=== PATIENT | male | born 1955 | race Caucasian/White ===

== ENCOUNTER 2017-01-07 21:49 | Inpatient (IN) | payer BC ==
[~2017-01-07] VITALS: Ht 182.9 cm; Wt 109.3 kg
[2017-01-07 22:11] LABS: ADD SCAN DIFF NO
[2017-01-07 22:14] LABS: ABNORMAL IP MESSAGE 1; HEMATOCRIT 23.4 % (42.0-52.0); HEMOGLOBIN 7.1 g/dl (14.0-18.0); MEAN CORPUSCULAR HEMOGLOBIN 29.6 pg (29.0-33.0); MEAN CORPUSCULAR HGB CONC 30.3 g/dl (32.0-37.0); MEAN CORPUSCULAR VOLUME 97.5 fl (82.0-101.0); MEAN PLATELET VOLUME 11.1 fl (7.4-10.4); PLATELET COUNT 462 10^3/UL (140-415); RED CELL DISTRIBUTION WIDTH 15.3 % (11.5-14.5); WHITE BLOOD COUNT 25.2 10^3/ul (4.8-10.8)
[2017-01-07] MEDS ORDERED: METF500T4 PO (22:20)
[2017-01-07] MEDS ORDERED: DULO60CA6 PO (22:20)
[2017-01-07] MEDS ORDERED: ESCI5TAB PO (22:25)
[2017-01-07 22:26] LABS: INR 1.29; PROTIME 16.2 Sec (12.2-14.2); PT RATIO 1.3
[2017-01-07 22:27] LABS: PARTIAL THROMBOPLASTIN TIME 33.1 Sec (25.0-35.0)
[2017-01-07] MEDS ORDERED: TAMS-14 PO (22:28)
[2017-01-07] MEDS ORDERED: IBUP400T22 PO (22:31)
[2017-01-07] MEDS ORDERED: LANT3I SC (22:34)
[2017-01-07 22:47] LABS: EOSINOPHILS # 1.5 10^3/ul (0.0-0.5); LYMPHOCYTES # 3.5 10^3/ul (0.8-2.9); MONOCYTE # 0.8 10^3/ul (0.3-0.9); NEUTROPHIL # 18.6 10^3/ul (1.6-7.5)
--- NOTE | 2017-01-07 23:06 | ERA ---
ER Documentation Chief Complaint Date/Time DATE: 01/07/17 TIME: 22:59 Chief Complaint HPI This is a 7-year-old male that had been transferred from his acute care facility , [facility] to vent dependent with leukocytosis, multiple pressure sores and a known history of MRSA. The patient is a DO NOT RESUSCITATE with comfort measures only. The patient was meant to be a direct admit and terminally extubated tomorrow however no beds were available in the hospital and therefore he presented through the emergency department. The admitting physician Dr. Valdez is aware. The patient is bedbound and aphasic and is unable to provide any further history. Antibiotics had been started at [facility] and rehab. ROS All systems reviewed and are negative except as per history of present illness. Medications Home Meds Reported Medications Insulin Glargine* (Lantus*) 100 Unit/Ml Soln, SC BID, #1 VIAL PATIENT DON'T REMEMBER BUT SHE SAID PATIENT IS ON LANTUS. 01/07/17 Ibuprofen* (Ibuprofen*) 400 Mg Tablet, 400 MG PO Q6H Y for PAIN, TAB 01/07/17 Tamsulosin Hcl* (Flomax*) 0.4 Mg Cap.er.24h, 0.4 MG PO QHS, CAP PATIENT CAN'T RECALL THE DOSAGE. 01/07/17 Escitalopram Oxalate* (Lexapro*) 5 Mg Tablet, PO DAILY, #30 TAB UNKNOWN DOSE PER PATIENT 01/07/17 Duloxetine Hcl* (Cymbalta*) 60 Mg Capsule.dr, 60 MG PO DAILY, CAP 01/07/17 Metformin Hcl* (Metformin Hcl*) 500 Mg Tablet, 500 MG PO WITH BREAKFAST DINNE, # 30 TAB 01/07/17 Allergies Allergies: Coded Allergies: No Known Allergy (Unverified , 01/07/17) PMhx/Soc History of Surgery: Yes Anesthesia Reaction: No Hx Neurological Disorder: Yes (STROKE) Hx Respiratory Disorders: Yes (TRACH TO VENT) Hx Cardiac Disorders: Yes (HTN) Hx Psychiatric Problems: No Hx Miscellaneous Medical Probl: No Hx Alcohol Use: No Hx Substance Use: No Hx Tobacco Use: No Smoking Status: Never smoker Physical Exam Vitals Vital Signs Date Time Temp Pulse Resp B/P Pulse Ox O2 Delivery O2 Flow Rate FiO2 01/07/17 22:00 98.2 105 24 129/76 97 Mechanical Ventilator Trach Collar 4/24/17 22:00 98.2 105 23 129/76 100 01/07/17 21:50 105 23 98 40 Physical Exam Constitutional:Well-developed. Debilitated male. HEENT:Normocephalic. Atraumatic. Corneal clouding of both pupils. Moist mucous membranes.No tonsillar exudates. Neck: No nuchal rigidity. No lymphadenopathy. No posterior cervical spine tenderness or step-offs. Tracheostomy site is clean dry and intact Respiratory: Not using accessory muscles of respiration.Lungs were clear to auscultation bilaterally. No rhonchi. No rales. No wheezing. Cardiovascular: Tachycardic with regular rhythm.No murmurs. No rubs were appreciated.S1, S2 normal. Distal pulses are palpable 2+ bilaterally. GI: Abdomen was soft. Nontender. Non Distended. No pulsatile abdominal masses or bruits. No rebound. No guarding. Bowel sounds were present and normal. Muscle skeletal: Muscle atrophy of the upper and lower extremities Skin: No petechia, no purpura. No lesions on the palms or the soles of the feet. No maculopapular rash. Sacral decubitus ulcers stage III NEURO: Patient is bedbound. Aphasic. Result Diagram: 01/07/17 2200 Results 24 hrs Laboratory Tests Test 01/07/17 22:00 White Blood Count 25.210^3/ul Red Blood Count 2.4010^6/ul Hemoglobin 7.1g/dl Hematocrit 23.4% Mean Corpuscular Volume 97.5fl Mean Corpuscular Hemoglobin 29.6pg Mean Corpuscular Hemoglobin Concent 30.3g/dl Red Cell Distribution Width 15.3% Platelet Count 81584^3/UL Mean Platelet Volume 11.1fl Neutrophils % 74.0% Band Neutrophils % 3.0% Lymphocytes % 14.0% Monocytes % 3.0% Eosinophils % 6.0% Neutrophils # 18.610^3/ul Lymphocytes # 3.510^3/ul Monocytes # 0.810^3/ul Eosinophils # 1.510^3/ul Prothrombin Time 16.2Sec Prothrombin Time Ratio 1.3 INR International Normalized Ratio 1.29 Activated Partial Thromboplast Time 33.1Sec Current Medications Medications (Trade) Dose Ordered Sig/Lexus Route PRN Reason Start Time Stop Time Status Last Admin Dose Admin Cefepime HCl 50 ml @ 100 mls/hr ONCE STAT IVPB 01/07/17 23:07 01/07/17 23:36 Vancomycin HCl 250 ml @ 125 mls/hr ONCE ONCE IVPB 01/07/17 23:30 01/08/17 01:29 Levofloxacin/ Dextrose (Levaquin 750 Mg/ D5W 150 ml (Pmx)) 150 ml @ 100 mls/hr ONCE ONCE IVPB 01/07/17 23:30 01/08/17 00:59 Procedures/MDM This patient presented to the emergency department for direct admission. Blood cultures have been obtained. The patient was started on broad-spectrum antibiotics for sepsis of an unclear etiology. The patient will be admitted to the telemetry service as again the patient is a DO NOT RESUSCITATE with comfort measures only. Dr. Valdez is the admitting physician and he is aware that the patient is in the emergency department. Patient's hemoglobin was 7.1 but a blood transfusion was not given as the patient again is a DNR with comfort measures only. Departure Diagnosis: Primary Impression: Encounter for laboratory test Additional Impressions: Anemia Qualified Code: D64.9 - Anemia, unspecified type Leukocytosis Qualified Code: D72.825 - Bandemia Condition: Serious GERTRUDEMARCI VALLESA Jan 07, 2017 23:06
[2017-01-07] MEDS ORDERED: CEFEPIME 2GM/50 ML (PMX) 50 ML IVPB STA (23:07)
[2017-01-07] MEDS ORDERED: VANCOMYCIN 1 GM (PMX) 250 ML IVPB ONE (23:30)
[2017-01-07] MEDS ORDERED: LEVOFLOXACIN 750MG/D5W (PMX) 150 ML IVPB ONE (23:30)
[2017-01-07 23:44] LABS: ALBUMIN 2.3 g/dl (3.3-4.9); ALBUMIN/GLOBULIN RATIO 0.69; CALCIUM 7.2 mg/dl (8.4-10.2); TOTAL PROTEIN 5.6 g/dl (6.1-8.1)
[2017-01-07 23:51] LABS: CREATININE 7.78 mg/dl (0.61-1.24)
[2017-01-07 23:55] LABS: POTASSIUM 7.2 mmol/L (3.5-5.1)
[2017-01-08] VITALS (14 sets, daily range): BP systolic 91–98; BP diastolic 48–57; PULSE 95–111; RESP 16–31; TEMP 98; Ht 182.9 cm; Wt 109.3 kg
[2017-01-08 00:05] LABS: ADD UMIC YES; URINE BILIRUBIN (Dip) NEGATIVE (NEGATIVE); URINE BLOOD (Dip) 3+ (NEGATIVE); URINE COLOR LT. YELLOW (YELLOW); URINE GLUCOSE (Dip) NEGATIVE (NEGATIVE); URINE KETONES (Dip) NEGATIVE (NEGATIVE); URINE LEUKOCYTE ESTERASE (Dip) 3+ (NEGATIVE); URINE NITRITE (Dip) NEGATIVE (NEGATIVE); URINE TOTAL PROTEIN (Dip) 2+ (NEGATIVE); URINE UROBILINOGEN (Dip) 0.2 E.U./dL (0.1-1.0)
[2017-01-08 00:30] LABS: BACTERIA,URINE MODERATE; URINE RBCS 25-50 /HPF (0)
[2017-01-08] MEDS ORDERED: morphine (DRIP) 100 MG/100 ML 100 ML IV SCH (01:30)
[2017-01-08] MEDS ORDERED: LORAZEPAM 2 MG INJ IV PRN (01:30)
--- NOTE | 2017-01-08 05:08 | HP ---
Date/Time of Note Date/Time of Note DATE: 01/08/17 TIME: 04:50 Assessment/Plan VTE Prophylaxis VTE Prophylaxis Intervention: other (no need for ppx as pt is comfort measure only) Lines/Catheters [facility] (from [facility]): PICC Line Central line still needed: Yes Urinary Cath still in place: Yes Reason Cath still needed: other (indicate) Assessment/Plan Assessment/Plan ASSESSMENT: patient is a 61 yo unfortunate male with severe stroke in November of this year who is trached to vent and is in a vegetative state who was transferred from rehab for hospice eval and terminal extubation PLAN - Morphine drip and Ativan titrate to comfort - palliative care and hospice eval - pt to be terminally extubated tomorrow HPI/ROS Admit Date/Time Admit Date/Time Jan 07, 2017 at 21:53 Hx of Present Illness Patient is a 61 yo male with hx of of Diabetes, stroke, trach to vent and who is in a vegetative state who was sent from Rehab for hospice eval and terminal extubation. History was taken from who was at bedside. She said he had stroke in november of this year that led to his current condition. She requested that pt only be comfortable at this time. She is aware of pt's potassium of 7.2 , WBC 25K, Cr > 7 as well as abnormal LFTs. She said they have 2 children. Oldest son is 32 yo and is currently in [facility]. youngest child requires special need due to his mental capacity. She is the only decision maker for her . Patient is completely in a vegetative state, but at times withdraws to noxious stimuli. . PMH/Family/Social Past Medical History Medical History: diabetes, other (CVA) Past Surgical History Past Surgical Hx: other (tracheostomy, gtube) Social History Alcohol Use: occasionally Smoking Status: Never smoker Drug Use: none Exam/Review of Systems Vital Signs Vitals Vital Signs Date Time Temp Pulse Resp B/P Pulse Ox O2 Delivery O2 Flow Rate FiO2 01/08/17 03:48 97.7 96 19 92/54 98 01/08/17 00:00 Mechanical Ventilator Trach Collar 01/07/17 23:31 40 Exam Constitutional: non-verbal, other (trached to vent. in a vegetative state) Eyes: other (pinpoint pupils with right eye very minimally reactive to light. Left eye unreactive) Respiratory: diminished breath sounds Cardiovascular: other (tachycardic) Gastrointestinal: other (gtube in place), soft Extremities: normal pulses Labs Result Diagram: 01/07/17219901/07/172199 Medications Medications Current Medications Lorazepam 1 mg 1 mg Q1H PRN IV ANXIETY Last administered on 01/08/17 01:25; Admin Dose 1 MG; Start 01/08/17 at 01:30 Morphine Sulfate/ Sodium Chloride (morphine) 100 ml @ 1 mls/hr TITRATE IV Last administered on 01/08/17 02:17; Admin Dose 1 MLS/HR; Start 01/08/17 at 01:30 MADISON HERRING MD Jan 08, 2017 05:00
--- NOTE | 2017-01-08 12:39 | PN ---
Date/Time of Note Date/Time of Note DATE: 01/08/17 TIME: 12:34 Assessment/Plan VTE Prophylaxis VTE Prophylaxis Intervention: other Lines/Catheters IV Catheter Type (from Nrsg): PICC Line Central line still needed: Yes Urinary Cath still in place: Yes Reason Cath still needed: other (indicate) Assessment/Plan Chief Complaint/Hosp Course Assessment and plan: 1. sepsis 2. Sacral decubitus 3. Ventricular tachycardia 4. Ventilator dependent respiratory failure 5.. G-tube feeding 6. Encephalopathy Plan Patient has been admitted to [facility] for terminal extubation and comfort measures Patient has been placed on morphine drip, family has been notified Prognosis poor Problems: Subjective 24 Hr Interval Summary Free Text/Dictation Patient has been having episodes of ventricular tachycardia Patient's family was notified and requested the patient is DNR and under comfort measures Patient has been placed on morphine drip for comfort measures Exam/Review of Systems Vital Signs Vitals Vital Signs Date Time Temp Pulse Resp B/P Pulse Ox O2 Delivery O2 Flow Rate FiO2 01/08/17 11:31 102.4 113 16 98/57 93 01/08/17 11:19 40 01/08/17 00:00 Mechanical Ventilator Trach Collar Intake and Output 01/07/17 01/07/17 01/08/17 15:00 23:00 07:00 Intake Total 0 ml Output Total 250 ml Balance -250 ml Exam General: The patient is unresponsive to pain or verbal stimuli, found to have agonal breathing HEENT: Atraumatic, normocephalic. The pupils are equal and sluggish Neck: Trach in place Chest: Agonal breathing Lungs: Decreased breath sounds bilateral lower lung field Heart: Normal S1-S2, tachycardic Abdomen: Soft , nontender, nondistended , bowel sounds are present. PEG tube in place Extremities: Decubitus ulcers bilateral lower extremities, +1 edema no cyanosis Neurologic: Minimal neurologic response Results Result Diagram: 01/07/17219901/07/172199 Results 24 hrs Laboratory Tests Test 01/07/17 22:00 01/07/17 23:30 White Blood Count 25.2 H Red Blood Count 2.40 L Hemoglobin 7.1 L Hematocrit 23.4 L Mean Corpuscular Volume 97.5 Mean Corpuscular Hemoglobin 29.6 Mean Corpuscular Hemoglobin Concent 30.3 L Red Cell Distribution Width 15.3 H Platelet Count 462 H Mean Platelet Volume 11.1 H Neutrophils % 74.0 Band Neutrophils % 3.0 Lymphocytes % 14.0 L Monocytes % 3.0 Eosinophils % 6.0 Neutrophils # 18.6 H Lymphocytes # 3.5 H Monocytes # 0.8 Eosinophils # 1.5 H Prothrombin Time 16.2 H Prothrombin Time Ratio 1.3 INR International Normalized Ratio 1.29 Activated Partial Thromboplast Time 33.1 Sodium Level 133 L Potassium Level 7.2 *H Chloride Level 94 L Carbon Dioxide Level 27 Anion Gap 19 H Blood Urea Nitrogen 163 H Creatinine 7.78 H Glucose Level 207 Calcium Level 7.2 L Total Bilirubin 0.0 L Direct Bilirubin 0.00 Indirect Bilirubin 0.0 Aspartate Amino Transf (AST/SGOT) 298 H Alanine Aminotransferase (ALT/SGPT) 126 H Alkaline Phosphatase 194 H Total Protein 5.6 L Albumin 2.3 L Globulin 3.30 H Albumin/Globulin Ratio 0.69 Urine Color LT. YELLOW Urine Clarity SLIGHTLY CLOUDY Urine pH 6.5 Urine Specific Lawler 1.015 Urine Ketones NEGATIVE Urine Nitrite NEGATIVE Urine Bilirubin NEGATIVE Urine Urobilinogen 0.2 E.U./dL Urine Leukocyte Esterase 3+ H Urine Microscopic RBC 25-50 Urine Microscopic WBC >200 Urine Amorphous Urates FEW Urine Bacteria MODERATE Urine Hemoglobin 3+ H Urine Glucose NEGATIVE Urine Total Protein 2+ H Medications Medications Current Medications Lorazepam 1 mg 1 mg Q1H PRN IV ANXIETY Last administered on 01/08/17 01:25; Admin Dose 1 MG; Start 01/08/17 at 01:30 Morphine Sulfate/ Sodium Chloride (morphine) 100 ml @ 1 mls/hr TITRATE IV Last administered on 01/08/17 02:17; Admin Dose 1 MLS/HR; Start 01/08/17 at 01:30 ZARIA GEE MD Jan 08, 2017 12:39
--- NOTE | 2017-01-08 16:11 | DS ---
DATE OF ADMISSION: 01/07/2017 DATE OF DISCHARGE: 01/08/2017 DATE OF : 01/08/2017. TIME OF : 1310. Patient was pronounced at 1350. CONSULTANTS: Hospice. HOSPITAL COURSE: This is an unfortunate 61-year-old gentleman with a history of CVA in November who wa s trached on the vent and has been in a vegetative state and has been at [facility]. He has had several operations at [facility] and was transferred to [facility] which he has been on as of today's date and has been having worsening conditions in cluding sacral decubitus. After discussing the patient's prognosis with the family, the family deci ded that they wanted to proceed with terminal extubation and placed on comfort measure, therefore, celi braun was transferred to [facility] where he was placed on morphine drip and comf ort measure. LABORATORIES: Upon arrival to the floor, his labs are as follows: WBC 25.20, hemoglobin 7.1, hemat ocrit 23.4, platelet 462. Sodium 133, potassium 7.2, chloride 94, bicarbonate 27, BUN 163, creatini ne 7.78, bicarbonate 27, calcium 7.2, AST 298, ALT 122, alkaline phosphatase 194, total protein 5.6, albumin 2.3, globulin 3.3. Urinalysis: Leukocyte esterase +3, RBC 25.5, WBC 200, total protein po sitive 2. The patient was placed on comfort measures via morphine this morning. I had the pleasure of speaking to his when patient went into ventricular tachycardia and her wishes were to proceed with comf ort measures. The patient was in a comfortable position prior to his . The patient today on 01/08/2017 at 1310 was pronounced at 1350. Family was at the bedside. CAUSE OF : 1. Acute cardiopulmonary arrest. 2. Ventilator dependent respiratory failure. 3. Sepsis. 4. Urinary tract infection. 5. Severe hyperkalemia. 6. Renal failure. 7. Severe dehydration. 8. History of cerebrovascular accident. 9. Major depression. 10. Diabetes mellitus. 11. 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 Dictated By: ZARIA DEE/NTS Conf#: [id number] DID#: [id number] CC: Health Department;*EndCC*
== END 2017-01-08 18:33 | disposition expired | DRG 871 ==
LOC: E/R 21:49 → TEL 21:53
PROVIDERS: ADMIT Internal Medicine; ATTEND Internal Medicine
DX: A41.9 Sepsis, unspecified organism (principal); G93.40 Encephalopathy, unspecified; I47.2 Ventricular tachycardia; R40.3 Persistent vegetative state; Z99.11 Dependence on respirator [ventilator] status; J96.10 Chronic respiratory failure, unspecified whether with hypoxia or hypercapnia; N19 Unspecified kidney failure; N39.0 Urinary tract infection, site not specified; Z51.5 Encounter for palliative care; L89.159 Pressure ulcer of sacral region, unspecified stage; I69.998 Other sequelae following unspecified cerebrovascular disease; E11.9 Type 2 diabetes mellitus without complications; Z93.0 Tracheostomy status; I46.9 Cardiac arrest, cause unspecified; E87.5 Hyperkalemia; E86.0 Dehydration; F32.9 Major depressive disorder, single episode, unspecified; Z66 Do not resuscitate; I69.320 Aphasia following cerebral infarction
CPT/HCPCS: 80053; 81001; 81003; 85025; 85610; 85730; 87040; 87081; 87086; 94002; 94003; 96374; 96375; J0692; J1956; J2060; J2270; J3370